=== PATIENT | male | born 1990 | race Caucasian/White ===

== ENCOUNTER 2018-08-20 08:53 | Emergency (ER) | payer SELFPAY ==
[~2018-08-20] VITALS: Ht 180.3 cm; Wt 93.0 kg
[2018-08-20] MEDS ORDERED: PARO20TA99 PO (10:32)
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
[2018-08-20 10:33] VITALS: BP 120/59
== END 2018-08-20 11:07 | disposition home or self-care (01) ==
LOC: ER 08:53
DX: R06.09 Other forms of dyspnea (principal)
CPT/HCPCS: 99283